=== PATIENT | male | born 1970 | race African-American/Black ===

== ENCOUNTER 2017-01-03 09:26 | Emergency (ER) | payer MEDICARE, OTHER ==
[~2017-01-03] VITALS: Ht 177.8 cm; Wt 85.0 kg
[~2017-01-03 09:26] MED LIST: IBUP800T23 PO; ORPH100T PO; TRAM50 PO
[2017-01-03 09:27] VITALS: BP 163/74; PULSE 67; RESP 16; TEMP 98; O2SAT 100
--- NOTE | 2017-01-03 09:57 | PD ---
HPI Chief Complaint: Complaint Time Seen by Provider: 09:32 Travel History International Travel<30 days: No Contact w/Intl Traveler<30days: No Traveled to known affect area: No History of Present Illness HPI Patient is a 46-year-old male who presents to emergency room complaints of penile discharge. Patient reports that he has had penile discharge as well as dysuria, urinary urgency and frequency for the past 2 days, that he has yellowish penile discharge at this time. Patient has had STDs in the past, reports that symptoms are similar to when he has had STD in the past. Patient denies any abdominal pain, denies any nausea or vomiting or diarrhea. Patient denies any flank pain. Patient here for evaluation of possible STD. [facility] Past Medical History Medical History: Denies Significant Hx Tetanus Vaccination: < 5 Years Past Surgical History Surgical History: No Previous Surgery Social History Alcohol Use: Yes Tobacco Use: Yes Substance Use: No Allergies-Medications (Allergen,Severity, Reaction): Coded Allergies: No Known Allergies (Verified Adverse Reaction, Unknown, 01/03/17) Reported Meds & Prescriptions Reported Meds & Active Scripts Active Cipro (Ciprofloxacin HCl) 500 Mg Tab 500 Mg PO BID 7 Days Review of Systems General / Constitutional: No: Fever Eyes: No: Visual changes HENT: No: Headaches Cardiovascular: No: Chest Pain or Discomfort Respiratory: No: Shortness of Breath Gastrointestinal: No: Abdominal Pain Genitourinary: Positive: Urgency, Frequency, Dysuria, Other (penal discharge) Musculoskeletal: No: Pain Skin: No Rash Neurologic: No: Weakness Psychiatric: No: Depression Endocrine: No: Polydipsia Hematologic/Lymphatic: No: Easy Bruising Physical Exam Narrative GENERAL: NAD SKIN: Focused skin assessment warm/dry. HEAD: Atraumatic. Normocephalic. EYES: Pupils equal and round. No scleral icterus. No injection or drainage. ENT: No nasal bleeding or discharge. Mucous membranes pink and moist. NECK: Trachea midline. No JVD. CARDIOVASCULAR: Regular rate and rhythm. No murmur appreciated. RESPIRATORY: No accessory muscle use. Clear to auscultation. Breath sounds equal bilaterally. GASTROINTESTINAL: Abdomen soft, non-tender, nondistended. Hepatic and splenic margins not palpable. MUSCULOSKELETAL: No obvious deformities. No clubbing. No cyanosis. No edema. NEUROLOGICAL: Awake and alert. No obvious cranial nerve deficits. Motor grossly within normal limits. Normal speech. PSYCHIATRIC: Appropriate mood and affect; insight and judgment normal. Data Data Last Documented VS Vital Signs Date Time Temp Pulse Resp B/P (MAP) Pulse Ox O2 Delivery O2 Flow Rate FiO2 01/03/17 09:27 98.0 67 16 163/74 (103) 100 Orders Orders Gc And Chlamydia Pcr (01/03/17 09:37) Urinalysis - C+S If Indicated (01/03/17 09:37) Azithromycin Powd Pack (Zithromax Powd P (01/03/17 10:15) Lidocaine 1% Inj (50 Ml) (Xylocaine 1% I (01/03/17 10:15) Ceftriaxone Inj (Rocephin Inj) (01/03/17 10:15) Urine Culture (01/03/17 09:49) Labs Laboratory Tests Test 01/03/17 09:49 Urine Color YELLOW Urine Turbidity HAZY Urine pH 6.5 Urine Specific [place] 1.019 Urine Protein TRACE mg/dL Urine Glucose (UA) NEG mg/dL Urine Ketones NEG mg/dL Urine Occult Blood SMALL Urine Nitrite NEG Urine Bilirubin NEG Urine Urobilinogen LESS THAN 2.0 MG/DL Urine Leukocyte Esterase LARGE Urine RBC 41 /hpf Urine WBC 149 /hpf Urine Mucus FEW /lpf Microscopic Urinalysis Comment CULTURE INDICATED MDM Medical Decision Making Medical Screen Exam Complete: Yes Emergency Medical Condition: Yes Medical Record Reviewed: Yes Interpretation(s) Vital Signs Date Time Temp Pulse Resp B/P (MAP) Pulse Ox O2 Delivery O2 Flow Rate FiO2 01/03/17 09:27 98.0 67 16 163/74 (103) 100 Differential Diagnosis UTI, STD Narrative Course 46 old male who presents to emergency room for STD testing as he has been having yellowish penile discharge for the past 2 days. Patient reports that he is sexually active with his only. Reports history of STDs with similar symptoms to today During the course of the patients emergency department visit, the patients history, examination, and differential diagnosis were reviewed with the patient. The patient was placed on a remelt furnace expediter with oximetry and frequent blood pressure monitoring. The patient was initially provided IM Rocephin as well as by mouth azithromycin The patients laboratory studies were reviewed and remarkable for: Laboratory Tests Test 01/03/17 09:49 Urine Color YELLOW (YELLW/STRAW) Urine Turbidity HAZY (CLEAR) Urine pH 6.5 (5.0-8.5) Urine Specific [place] 1.019 (1.002-1.035) Urine Protein TRACE mg/dL (NEG-TRACE) Urine Glucose (UA) NEG mg/dL (NEG) Urine Ketones NEG mg/dL (NEG) Urine Occult Blood SMALL (NEG) Urine Nitrite NEG (NEG) Urine Bilirubin NEG (NEG) Urine Urobilinogen LESS THAN 2.0 MG/DL (LESS Urine Leukocyte Esterase LARGE (NEG) Urine RBC 41 /hpf (0-3) Urine WBC 149 /hpf (0-5) Urine Mucus FEW /lpf (OCC) Microscopic Urinalysis Comment CULTURE INDICATED Patient understands that we only cultured for gonorrhea and chlamydia, he will have to follow up with health clinic for further testing Diagnosis Primary Impression: Urethritis Additional Impression: UTI (urinary tract infection) Qualified Codes: N30.01 - Acute cystitis with hematuria Patient Instructions: General Instructions Additional Instructions: Please follow up with all cultures from today, if cultures are positive, then all sexual parties will need to be treated Please follow up with your primary care doctor in 2-3 days Return to the ER if symptoms worsen or progress Return to the ER as needed Please take all antibiotics as prescribed Please follow-up with the health clinic for further STD testing as only gonorrhea and chlamydia have been tested today. Med/Other Pt SpecificInfo: Prescription(s) given Scripts Ciprofloxacin (Cipro) 500 Mg Tab 500 MG PO BID for Infection for 7 Days, #14 TAB 0 Refills Prov: Cheri Leiva DO 01/03/17 Disposition: 01 DISCHARGE HOME Condition: Stable Cheri Leiva DO Jan 03, 2017 09:57
[2017-01-03] MEDS ORDERED: AZITHROMYCIN PWD FOR SUSP 1 GM PACKET PO ONE (10:15)
[2017-01-03] MEDS ORDERED: LIDOCAINE HCL 1% 50 ML VIAL IM ONE (10:15)
[2017-01-03 10:27] LABS: BLOOD, URINE SMALL (NEG); COMMENT (UR) CULTURE INDICATED; CULTURE IF INDICATED CULTURE INDICATED; GLUCOSE,URINE NEG (NEG); KETONE, URINE NEG (NEG); MUCUS URINE FEW /lpf (OCC); NITRITE,URINE NEG (NEG); PH, URINE 6.5 (5.0-8.5); URINE COLOR YELLOW (YELLW/STRAW)
[2017-01-03] MEDS ORDERED: CIPR-9 PO (10:42)
[2017-01-03 12:45] LABS: CHLAMYDIA PCR NOT DETECTED (NOT DETECT); NEISSERIA PCR DETECTED (NOT DETECT)
== END 2017-01-03 11:18 | disposition home or self-care (01) ==
LOC: NEPD 09:26
DX: N34.2 Other urethritis (principal); N39.0 Urinary tract infection, site not specified; Z72.0 Tobacco use
CPT/HCPCS: 81001; 87086; 87491; 87591; 96372; 99284; J0696

== ENCOUNTER 2017-04-09 09:35 | Emergency (ER) | payer SELFPAY ==
[~2017-04-09] VITALS: Ht 177.8 cm; Wt 80.0 kg
[~2017-04-09 09:35] MED LIST changes: +CIPR-9 PO; -IBUP800T23 PO; -ORPH100T PO
[2017-04-09 09:54] VITALS: BP 127/75; PULSE 59; RESP 18; TEMP 98.2; O2SAT 100
--- NOTE | 2017-04-09 10:17 | PD ---
HPI Chief Complaint: Injury Time Seen by Provider: 10:07 Travel History International Travel<30 days: No Contact w/Intl Traveler<30days: No Traveled to known affect area: No History of Present Illness HPI 46-year-old male presents to the emergency room to have x-rays for his chronic neck pain. Neck pain started 2 years ago after he was working out. Localized to the left upper and lateral neck. Patient had a prescription from his primary care doctor in [place], Dr. Lawrence, to have x-rays of his neck. States he lost the prescription. History Social History Alcohol Use: Yes Tobacco Use: Yes Allergies-Medications (Allergen,Severity, Reaction): Coded Allergies: No Known Allergies (Verified Adverse Reaction, Unknown, 01/03/17) Reported Meds & Prescriptions Reported Meds & Active Scripts Active Cipro (Ciprofloxacin HCl) 500 Mg Tab 500 Mg PO BID 7 Days Ultram (Tramadol HCl) 50 Mg Tab 1 Tab PO Q4 PRN FOR PAIN Review of Systems Except as stated in HPI: all other systems reviewed are Neg Physical Exam Narrative GENERAL: Well-nourished, well-developed male in no acute distress. Afebrile. Ambulatory. SKIN: Focused skin assessment warm/dry. HEAD: Normocephalic. EYES: No scleral icterus. No injection or drainage. NECK: Supple, trachea midline. No JVD or lymphadenopathy. Tenderness to palpation of the left paraspinous musculature of the cervical spine. Full range of motion of the neck and back. Data Data Last Documented VS Vital Signs Date Time Temp Pulse Resp B/P (MAP) Pulse Ox O2 Delivery O2 Flow Rate FiO2 04/09/17 09:54 98.2 59 18 127/75 (92) 100 MDM Medical Screen Exam Complete: Yes Emergency Medical Condition: No Differential Diagnosis Chronic neck pain Narrative Course 46-year-old male presents to the emergency room to have x-rays of his neck performed. Patient has had chronic neck pain for 2 years. His primary care physician wrote prescription for outpatient x-rays and he thought he can have them done through the emergency room. Patient lost his prescription. He called his primary care physician while in the emergency room and the prescription was faxed over to our facility. He was then referred to the outpatient radiology department. There are no urgent or emergent medical conditions at this time. A medical screening exam was performed: At the time of evaluation the presenting medical condition was determined not to be of an emergent nature. The patient was given the option of receiving additional care, but declined. Patient was given options for additional community resources from which to obtain care. The Patient Has Been advised to seek medical attention for their presenting complaint. The patient has been advised to return to the ER at any time if an emergent condition develops. Primary Impression: Encounter for medical screening examination Disposition: 01 DISCHARGE HOME Condition: Stable Betina Jiménez Apr 09, 2017 10:17
== END 2017-04-09 10:25 | disposition left against medical advice (07) ==
LOC: NEPK 09:35
DX: M54.2 Cervicalgia (principal)
CPT/HCPCS: 99281